=== PATIENT | female | born 1980 | race Caucasian/White ===

== ENCOUNTER 2016-10-06 13:31 | Emergency (ER) | payer OTHER ==
[~2016-10-06] VITALS: Ht 170.2 cm; Wt 49.0 kg
--- NOTE | ~2016-10-06 | EKG ---
PATIENT: LUIS FELIPE BURNHAM UNIT #: [id number] Ventricular Rate: 79 BPM Atrial Rate: 79 BPM P-R Interval: 160 ms QRS Duration: 70 ms Q-T Interval: 360 ms QTC Calculation(Bezet): 412 ms P [place]: 51 degrees Calculated R [place]: 65 degrees Calculated T [place]: 40 degrees Diagnosis Line: Normal sinus rhythm Diagnosis Line: Normal ECG Diagnosis Line: No previous ECGs available Diagnosis Line: Confirmed by HERNANDEZ TOWNSEND MD ([id number]) on Diagnosis Line: 10/06/2016 3:06:16 PM INTERPRETING MD: KRISTIAN ROBERTS
--- NOTE | ~2016-10-06 | CR132 ---
[facility] A Service of [facility] RADIOLOGY TEXT RESULTS PATIENT: LUIS FELIPE BURNHAM LOCATION: [facility] : [birth year] UNIT #: [id number] AGE: [address]: Bacilio Claros MD SEX: F ORDER DR: [id number] [facility] [address] [place], [place] [address] [id number] E MR#: [id number] Acc #: [id number] NAME: LUIS FELIPE BURNHAM : 1980 SEX: F STUDY DATE/TIME: 10/06/2016 14:07 UNIT: [facility] ROOM: STUDY DESCRIPTION: CR Forearm 2 View Lt Attending Physician: Bacilio Claros M.D. Ordering Physician: Bacilio Claros M.D. Primary Care Physician: No Primary Care Physician MEDICAL IMAGING REPORT This report is preliminary unless electronic signature is present EXAM Left forearm, 10/06/2016, [facility]. HISTORY 35-year-old woman passed out and fell, with left forearm injury, abrasion, swelling and pain, medial aspect. FINDINGS 2 views of the left forearm demonstrate no fracture with intact left radius and ulna. There is some soft tissue swelling involving the medial forearm soft tissues. I see no retained foreign body. IMPRESSION Negative for fracture. Dictated by... Christiano Hernandez M.D. THIS IS AN ELECTRONICALLY VERIFIED REPORT Christiano Hernandez M.D. at 10/09/2016 7:58 AM MARIAM/álvaro TD: 10/06/2016 17:33 JOB #: [id number] MEDICAL IMAGING REPORT Page 1 of 1 COPY
--- NOTE | ~2016-10-06 | CR72 ---
[facility] A Service of [facility] RADIOLOGY TEXT RESULTS PATIENT: LUIS FELIPE BURNHAM LOCATION: [facility] : 80 UNIT #: [id number] AGE: [address]: Bacilio Claros MD SEX: F ORDER DR: [id number] [facility] [address] [place], [place] [address] [id number] E MR#: [id number] Acc #: [id number] NAME: LUIS FELIPE BURNHAM : 1980 SEX: F STUDY DATE/TIME: 10/06/2016 14:04 UNIT: [facility] ROOM: STUDY DESCRIPTION: CR Chest Single View Portable Attending Physician: Bacilio Claros M.D. Ordering Physician: Bacilio Claros M.D. Primary Care Physician: No Primary Care Physician MEDICAL IMAGING REPORT This report is preliminary unless electronic signature is present EXAM Portable chest 10/06/2016 HISTORY 35-year-old woman, syncopal episode. Patient fell today with injury to left forearm. COMPARISON STUDIES Comparison chest 03/08/2009. FINDINGS Portable chest demonstrates normal cardiac size and configuration. Hilar structures are preserved. Lungs are fully expanded and clear with no infiltrates and no effusion. Surgical clips again partially imaged left upper abdominal quadrant. IMPRESSION Stable chest with no acute finding. Dictated by... Christiano Hernandez M.D. THIS IS AN ELECTRONICALLY VERIFIED REPORT Christiano Hernandez M.D. at 10/09/2016 7:58 AM [place] TD: 10/06/2016 17:37 JOB #: [id number] MEDICAL IMAGING REPORT Page 1 of 1 COPY
[~2016-10-06 13:31] MED LIST: BACTRIM DS TABL1 TA1 PO; MOTRIN20 MG/ML PO
[2016-10-06 14:25] LABS: BASOPHIL% 0.4 % (0-2.5); EOSINOPHIL# 0.3 X10e3 (0-0.7); EOSINOPHIL% 2.8 % (0.0-7.0); HEMATOCRIT 30.5 % (35.0-45.0); HEMOGLOBIN 9.6 gm/dL (12.0-16.0); LYMPHOCYTE% 19.5 % (17.0-45.0); MEAN CELL VOLUME 79.9 FL (83-96); MEAN CORPUSCULAR HEMOGLOBIN 25.1 PG (28-34); MEAN CORPUSCULAR HGB CONC 31.4 g/dL (30-36); MONOCYTE# 0.8 X10e3 (0-1.0); MONOCYTE% 8.3 % (3.0-12.0); PLATELET COUNT 339 X10e3 (140-420); RED BLOOD COUNT 3.82 X10e (3.90-5.30); RED CELL DISTRIBUTION WIDTH 14.1 % (11.0-15.5); WHITE BLOOD COUNT 10.1 X10e3 (4.0-10.5)
[2016-10-06 14:26] LABS: POC - CKMB 2.8 ng/mL (0.0-7.9); POC - TROPONIN <0.05 ng/mL (<=0.05)
[2016-10-06 14:27] LABS: DIFF IND NO
[2016-10-06 14:49] LABS: ALBUMIN SERUM 3.5 g/dL (3.5-5.0); ALKALINE PHOSPHATASE 57 U/L (32-92); ALT (SGPT) 16 U/L (10-40); AST (SGOT) 21 U/L (10-42); BILIRUBIN,TOTAL 0.5 mg/dL (0.2-2.0); BLOOD UREA NITROGEN 7 mg/dL (9-23); BUN/CREATININE RATIO 7.77; CARBON DIOXIDE 26 mmol/L (22-31); CHLORIDE 105 mmol/L (100-111); CREATININE SERUM 0.9 mg/dL (0.6-1.4); GLOM FILT RATE Estimated 82.9 mL/min (>60); GLUCOSE FASTING 124 mg/dL (70-110); POTASSIUM 3.6 mmol/L (3.5-5.1); PROTEIN TOTAL SERUM 7.6 g/dL (6.0-8.3); SODIUM 138 mmol/L (135-145)
[2016-10-06 14:50] LABS: BILIRUBIN, DIRECT <0.1 mg/dL (0.0-0.2); BILIRUBIN,INDIRECT 0.4 mg/dL (0.0-0.9)
== END 2016-10-06 15:20 | disposition home or self-care (01) ==
LOC: CED 13:31
PROVIDERS: Emergency Medicine
DX: F11.10 Opioid abuse, uncomplicated (principal); I10 Essential (primary) hypertension; I80.8 Phlebitis and thrombophlebitis of other sites; Z79.899 Other long term (current) drug therapy
CPT/HCPCS: 36415; 71010; 73090; 80048; 80076; 82553; 84484; 85025; 93005; 96361; 96374; 99284; J2405